=== PATIENT | female | born 1985 | race Caucasian/White ===

== ENCOUNTER 2025-10-12 18:04 | Emergency (ER) | payer SELFPAY ==
[2025-10-12 18:12] VITALS: BP 183/74; PULSE 145; RESP 22; TEMP 36.8; O2SAT 98; BMI 35.4
[2025-10-12] MEDS: SODIUM CHLORIDE 0.9% 1,000 ML 1000 ML IV (18:15)
[2025-10-12 18:19] LABS: Add Manual Diff / Slide Review NO; Hematocrit 37.6 % (36-46); Hemoglobin 12.7 g/dL (12.0-16.0); Lymphocytes Absolute Auto 4600 /uL (1100-4500); Mean Corpuscular HGB Conc 33.8 % (30-36); Mean Corpuscular Hemoglobin 30.4 PG (26-34); Mean Corpuscular Volume 90.0 fL (80-100); Platelet Count 327 X10^3/uL (150-400)
[2025-10-12 18:29] LABS: Pregnancy Test Serum,Qual Negative (Negative)
[2025-10-12 18:31] LABS: Alanine Aminotransferase 38 IU/L (<35); Albumin 5.0 g/dL (3.5-5.0); Albumin Globulin Ratio 1.6 (1.0-2.8); Alkaline Phosphatase 71 U/L (38-126); Blood Urea Nitrogen 11 mg/dL (7-17); Calcium 9.3 mg/dL (8.4-10.2); Carbon Dioxide 22 mmol/L (22-32); Chloride 104 mmol/L (98-107); Estimated Glomerular Filt Rate > 60 mL/min (>60); Ethanol (ETOH) < 10 mg/dL (<10); Globulin 3.1 g/dL (1.7-4.1); Glucose 100 mg/dL (70-99); HEMOLYSIS < 15 (0-50); Magnesium 1.8 mg/dL (1.6-2.3); Potassium 3.3 mmol/L (3.4-5.1); Sodium 140 mmol/L (137-145); Total Protein 8.1 g/dL (6.3-8.2)
--- NOTE | 2025-10-12 18:42 | ED.SEIZURE ---
HPI - Seizure General Chief Complaint: Seizure Stated Complaint: Seizure Time Seen by Provider: 10/12/25 18:06 Source: patient and EMS Mode of arrival: EMS Limitations: no limitations History of Present Illness HPI Narrative: Patient is a 40-year-old female history of seizures taking Keppra presents today with tremors. He reports that this kind of tremor started back in May she has had 9 episodes where they become full body tremors but she is awake alert and oriented during all of the. She has been taking her Keppra she has not missed a dose. This morning she reports that she woke up feeling kind of tingly later her arm started shaking in it has developed into full body shakes. She denies feeling ill she has not had any fever chills or other symptoms during this time. She is unable to follow-up due to health insurance reasons. She is able to provide me all of this information herself while actively having full body tremors. Related Data Allergies Allergy/AdvReac Type Severity Reaction Status Date / Time No Known Allergies Allergy Verified 10/12/25 18:13 Patient History Social History Smoking Status: Never smoker Smoking Status: Never smoker Exam Initial Vital Signs Initial Vital Signs: Vital Signs Temperature 98.2 F 10/12/25 18:12 Pulse Rate 145 H 10/12/25 18:12 Respiratory Rate 22 10/12/25 18:12 Blood Pressure 183/74 H 10/12/25 18:12 Pulse Oximetry 98 10/12/25 18:12 Oxygen Delivery Method Room Air 10/12/25 18:12 GENERAL: Alert 40-year-old female full body tremor diaphoretic HEENT: Head atraumatic,EOMI, pupils reactive, face symmetric, moist mucous membranes CARDIOVASCULAR: Regular rate and rhythm without murmurs, rubs or gallops. RESPIRATORY: Breath sounds equal bilaterally, no wheezes rales or rhonchi. ABDOMEN: Soft, nontender. Normoactive bowel sounds all 4 quadrants. No guarding or rebound. EXTREMITIES: Normal range of motion, no clubbing or edema. Neurovascularly intact NEUROLOGICAL: Alert and oriented x4.Normal gait and speech. Cranial nerves II through XII grossly intact. Full body tremor but moving everything able to speak SKIN: Warm, dry, no laceration, no petechiae, no rashes or lesions. Course Orders Ordered: ED Orders 10/12/25 18:09 CBC Auto Diff [Complete Blood Count AUTO DIFF] Stat CMP [Comprehensive Metabolic Panel] Stat ETOH [Ethanol (ETOH)] Stat MAG [Magnesium] Stat Test Serum,Qual Stat 10/12/25 20:16 UA Complete [Urinalysis and Microscopic] Stat Urine Drug Screen, Rapid Stat Discontinued Medications Sodium Chloride (Normal Saline 0.9%) 1,000 mls @ 1,000 mls/hr IV BOLUS ONE Stop: 10/12/25 19:10 Last Infusion: 10/12/25 20:14 Dose: Infused Documented By: Admin: 10/12/25 18:15 Dose: 1,000 mls/hr Documented By: ZABRINA Lorazepam (Lorazepam 2 Mg/Ml Inj) 1 mg IV NOW ONE Stop: 10/12/25 18:08 Last Admin: 10/12/25 18:14 Dose: 1 mg Documented By: ZABRINA Vital Signs Vital signs: Vital Signs - 8 hr 10/12/25 18:12 10/12/25 20:14 10/12/25 20:15 Temperature 98.2 F Pulse Rate 145 H 77 Respiratory Rate 22 17 Blood Pressure 183/74 H 100/61 Pulse Oximetry 98 100 Oxygen Delivery Method Room Air 10/12/25 20:15 10/12/25 20:30 10/12/25 20:30 Temperature Pulse Rate 75 74 Respiratory Rate 16 22 Blood Pressure 99/58 L Pulse Oximetry 100 100 Oxygen Delivery Method Room Air 10/12/25 20:52 Temperature Pulse Rate 75 Respiratory Rate 16 Blood Pressure 113/64 Pulse Oximetry 100 Oxygen Delivery Method Room Air MDM - Seizure Lab Data 10/12/25 18:09 10/12/25 18:09 Labs: Lab Results 10/12/25 10/12/25 10/12/25 Range/Units 18:09 20:16 20:16 WBC 9.5 (4.5-11.0) X10^3/uL RBC 4.18 (4.0-5.2) X10^6/uL Hgb 12.7 (12.0-16.0) g/dL Hct 37.6 (36-46) % MCV 90.0 (80-100) fL MCH 30.4 (26-34) PG MCHC 33.8 (30-36) % RDW 13.9 (11.6-14.8) % Plt Count 327 (150-400) X10^3/uL Neut % (Auto) 37.0 L (50-75) % Lymph % (Auto) 48.6 H (25-40) % [place] % (Auto) 10.5 (3-14) % Eos % (Auto) 3.1 (2-4) % Baso % (Auto) 0.8 (0-2) % Neut # (Auto) 3500 (1521-3216) /uL Lymph # (Auto) 4600 H (6997-4184) /uL [place] # (Auto) 1000 H (0-900) /uL Eos # (Auto) 300 (0-450) /uL Baso # (Auto) 100 (0-100) /uL Sodium 140 (137-145) mmol/L Potassium 3.3 L (3.4-5.1) mmol/L Chloride 104 (98-107) mmol/L Carbon Dioxide 22 (22-32) mmol/L BUN 11 (7-17) mg/dL Creatinine 0.77 (0.52-1.04) mg/dL Estimated GFR > 60 (>60) mL/min BUN/Creatinine Ratio 14.3 (6-22) Glucose 100 H (70-99) mg/dL Calcium 9.3 (8.4-10.2) mg/dL Magnesium 1.8 (1.6-2.3) mg/dL Total Bilirubin 0.3 (0.2-1.3) mg/dL AST 34 (14-36) IU/L ALT 38 H (<35) IU/L Alkaline Phosphatase 71 (38-126) U/L Total Protein 8.1 (6.3-8.2) g/dL Albumin 5.0 (3.5-5.0) g/dL Globulin 3.1 (1.7-4.1) g/dL Albumin/Globulin Ratio 1.6 (1.0-2.8) Serum , Qual Negative (Negative) Urine Color Yellow Urine Appearance Clear Urine pH 5.5 Normal (4.5-8.0) Ur Specific [place] 1.020 (1.000-1.035) Urine Protein Negative (Negative) Urine Glucose (UA) Negative (Negative) g/dL Urine Ketones Negative (NEGATIVE) Urine Occult Blood Negative (Negative) Urine Nitrate Negative (Negative) Urine Bilirubin Negative (NEGATIVE) Urine Urobilinogen 0.2 (0.2) E.U./dL Ur Leukocyte Esterase Negative (NEGATIVE) Urine RBC 0-1/hpf (0-5/HPF) Urine WBC 0-1/hpf (0-5/HPF) Ur Squamous Epith Cells 1-5 /hpf (0-5/HPF) Urine Bacteria Few (2-10) H (None) Ur Culture Indicated? Cult not indicated Vol Urine Centrifuged 10ml (spun) U Opiates 300ng/mL cut Negative (Negative) Ur Oxycodone Screen Negative (Negative) Urine Methadone Screen Negative (Negative) Ur Barbiturates Screen Negative (Negative) U Tricyclic Antidepress Negative (Negative) Ur Phencyclidine Scrn Negative (Negative) Ur Amphetamines Screen Negative (Negative) U Methamphetamines Scrn Negative (Negative) Ur MDMA Scrn (Ecstasy) Negative (Negative) U Benzodiazepines Scrn Negative (Negative) Urine Cocaine Screen Negative (Negative) U Marijuana (THC) Screen Positive H (Negative) Urine Specific [place] Normal (Normal) Ethyl Alcohol < 10 (<10) mg/dL Ur Creatinine Normal (Normal) MDM Narrative Medical decision making narrative: [facility] CC: Tremor Complicating co-morbidities: Seizure disorder Data collected from: Patient Medical records reviewed: None Differential considered: Pseudoseizures, seizure, tremor Exam documented above, pertinent findings include: Patient awake alert oriented was full body tremors the diaphoretic Lab Test results independently reviewed as above. Pertinent findings: CBC no abnormality CMP mild hypokalemia potassium 3.3, glucose is 100 other electrolytes including magnesium within normal limits negative Imaging studies independently reviewed: None Treatments: Ativan and normal saline Re-evaluations: Patient ambulated to the restroom without any difficulty Discussion:[Patient 40-year-old female with all body tremors. She is awake alert oriented during such and able to provide history. She does not even think this is a seizure she is unsure what this is. I suspect more of a pseudo-seizure. She is has been this is happened before her electrolytes have been completely off. Potassium today is slightly low at 3.3 no other significant electrolyte abnormality. Offered to give her potassium replacement however she says that is about normal for her. We do not have any records for her. No need for imaging she has no evidence of infection. She quickly improved with Ativan and fluids. Ambulated without any kind of multi. Discharge Plan Departure Patient Disposition: Home Clinical Impression: Tremor Instructions: Benign Essential Tremor Activity Restrictions/Additional Instructions: *You have been diagnosed with tremor *What to do: At this time follow-up with your doctors as possible you taking Keppra *Continue to take medications as directed *Follow up with your primary care provider in 2-3 days or call [phone] *Return to ER if you should have ongoing tremor, seizures or any new, worsening or concerning symptoms Stand Alone Forms: Patient Portal/API
--- NOTE | 2025-10-12 19:43 | PC.NURSE ---
Assumed pt care from AFIA Singh. pt a/ox4, ABC's intact, pt on cardiac cath lab radiology technologist, sz pads on bed. pt updated on POC, NAD noted
[2025-10-12 20:14] VITALS: PULSE 77; RESP 17; O2SAT 100
[2025-10-12 20:15] VITALS: BP 100/61; PULSE 75; RESP 16; O2SAT 100
[2025-10-12 20:25] LABS: Appearance Urine UA CLEAR; Bilirubin Urine UA NEGATIVE (NEGATIVE); Color Urine UA YELLOW; Glucose Urine UA NEGATIVE (Negative); Ketones Urine UA NEGATIVE (NEGATIVE); Leukocyte Esterase Urine UA NEGATIVE (NEGATIVE); Nitrite Urine UA NEGATIVE (Negative); Occult Blood Urine UA NEGATIVE (Negative); Protein Urine UA NEGATIVE (Negative); Specific Gravity Urine UA 1.020 (1.000-1.035); Urobilinogen Urine UA 0.2 E.U./dL (0.2)
[2025-10-12 20:28] LABS: pH Urine UA 5.5 (4.5-8.0)
[2025-10-12 20:30] VITALS: BP 99/58; PULSE 74; RESP 22; O2SAT 100
[2025-10-12 20:30] LABS: UR Morphine/Opiate cutoff 300 Negative (Negative); Ur Specific Gravity Normal (Normal); Urine MDMA Negative (Negative); Urine Methamphetamines Negative (Negative); Urine Tetrahydrocannabinol Positive (Negative); Urine Tricyclic Antidepressant Negative (Negative)
[2025-10-12 20:33] LABS: Culture Indicated Urine Cult Not Indicated
[2025-10-12 20:52] VITALS: BP 113/64; PULSE 75; RESP 16; O2SAT 100
== END 2025-10-12 20:53 | disposition home or self-care (01) ==
PROVIDERS: Emergency Provider Emergency Medicine
DX: R25.1 Tremor, unspecified (principal); Z86.69 Personal history of other diseases of the nervous system and sense organs
CPT/HCPCS: 36415; 80053; 80305; 80320; 81001; 83735; 84703; 85025; 96374; 99284; J2060; J7030